=== PATIENT | male | born 1975 | race Caucasian/White ===

== ENCOUNTER 2018-06-05 19:38 | Emergency (ER) | payer SELFPAY ==
[~2018-06-05] VITALS: Wt 119.4 kg
[~2018-06-05 19:38] MED LIST: DENIES
[2018-06-05 19:47] VITALS: BP 179/83; PULSE 111; RESP 20
== END 2018-06-06 01:00 | disposition left against medical advice (07) ==
LOC: FTE 19:38
DX: Z53.21 Procedure and treatment not carried out due to patient leaving prior to being seen by health care provider (principal)